=== PATIENT | male | born 2000 | race Caucasian/White ===

== ENCOUNTER 2021-10-07 08:02 | Emergency (ER) | payer BC, SELFPAY ==
--- NOTE | 2021-10-07 08:04 | ED.URI ---
HPI - URI/Sore Throat General Chief Complaint: Upper Respiratory Infection Stated Complaint: SWOLLEN TONSILS Time Seen by Provider: 10/07/21 08:04 Source: patient Mode of arrival: ambulatory Limitations: no limitations History of Present Illness HPI Narrative: Mr. Borrero is a 21-year-old male patient presenting to the clinic today with complaints of swollen tonsils. He reports he is having pain with swallowing. This is been going on for x2 days. He denies any fever or chills. He denies any cough or upper respiratory symptoms. He reports he has white spots on his tonsils with tonsillar enlargement. MD elicited complaint: sore throat (Tonsillar swelling) Related Data Allergies Allergy/AdvReac Type Severity Reaction Status Date / Time No Known Allergies Allergy Verified 10/07/21 08:11 Review of Systems Review of Systems: Pertinent positives per HPI. Patient denies any fever, chills, rash, headache, visual changes, dizziness, runny nose, cough, shortness of breath, chest pain, palpitations, nausea, vomiting, diarrhea, constipation, abdominal pain, or any urinary issues. PMFSH Comments At the time of my signature, I reviewed and agree with the nursing past medical, surgical, social, and family history. There is no relevant family history pertinent to the patient complaint. Exam Narrative: General: Well-developed, well nourished, in no apparent distress Head: Normocephalic, atraumatic Eyes: Pupils equally round and reactive to light bilaterally, EOM intact, sclera and conjunctive clear, no discharge, lids normal Ears: TMs intact and clear, ear canals clear, no drainage, grossly hearing normal. Nose: Nares patent, no discharge, no inflammation, no sinus tenderness. Mouth: Oral pharynx without lesions or masses, good dentition, MMM. Oropharynx red, bilateral tonsillar swelling with white exudate Neck: Supple, trachea midline, positive enlargement of anterior cervical nodes, no thyroid masses or goiter palpable. Cardio: Regular rate and rhythm, s1 and s2 normal, no murmur appreciated. Resp: Clear to auscultation bilaterally, no rhonchi, rales, wheezing or rubs Course Course Emergency Course: Portions of this record may have been created with voice recognition software. Level of Care: Express Care Visit Vital Signs Vital signs: Vital signs reviewed MDM - URI/Sore Throat MDM Narrative Medical decision making narrative: At the time of visit patient is resting comfortably on the exam table. Strep test and monotest completed in the clinic today and resulted negative. I suspect the patient has bacterial tonsillitis and will treat with a course of amoxicillin. Centor criteria 3 out of 4. Supportive measures were discussed with the patient and he voiced understanding of discharge instructions and agrees to the treatment plan. Differential Diagnosis Differential diagnosis: Likely influenza and pharyngitis (Strep, mono) Discharge Plan Discharge Clinical Impression: Acute bacterial tonsillitis Patient Disposition: Home, Self-Care Condition: Stable Instructions: Antibiotic Form, Tonsillitis (ED) Additional Instructions: Take prescription medications only as prescribed-take amoxicillin as prescribed Change her toothbrush in 24 hours after the initiation of the antibiotic Increase fluids and stay well hydrated Tylenol/motrin for pain/fever Flonase and OTC antihistamines as directed Vicks vapor rub to open sinuses Sinus rinses for congestion Cepacol spray, cough drops, throat lozenges, warm tea with honey/lemon, gargle salt water to soothe throat BRAT diet for diarrhea Clear liquids x 24 hours then advance as tolerated for nausea/vomiting May return to the clinic if symptoms worsen Go to the ED if you develop a worsening in your condition- high fever not controlled by Tylenol or Motrin, dehydration, weakness, lethargy, shortness of breath, or chest pain. Follow up with your PCP in 3-5 days
[2021-10-07 08:13] VITALS: BP 121/71; PULSE 117; RESP 20; TEMP 36.9; O2SAT 99
== END 2021-10-07 08:45 | disposition home or self-care (01) ==
PROVIDERS: Emergency Provider Nurse Practitioner Family
DX: J03.90 Acute tonsillitis, unspecified (principal)
CPT/HCPCS: 36416; 86308; 87081; 87880; 99213; G0463